=== PATIENT | female | born 1955 | race African-American/Black ===

== ENCOUNTER 2017-12-18 00:24 | Emergency (ER) | payer MEDICAID ==
[~2017-12-18] VITALS: Ht 165.1 cm; Wt 72.0 kg
[2017-12-18] MEDS ORDERED: IBUPROFEN 600MG TABLET PO ONE (03:00)
[2017-12-18] MEDS ORDERED: ZIPRASIDONE HCL 20MG CAPSULE PO ONE (06:15)
[2017-12-18] MEDS ORDERED: ACETAMINOPHEN 325MG TABLET PO ONE (11:00)
[2017-12-19] MEDS ORDERED: DIPHENHYDRAMINE 50MG/ML VIAL IV ONE (08:15)
[2017-12-19] MEDS ORDERED: HALOPERIDOL LACTATE 5MG/ML VIAL IM ONE (08:15)
[2017-12-19] MEDS: LORAZEPAM 2MG/ML CPJ IM PRN ×2 (08:58→13:04)
[2017-12-19 10:39] LABS: *BARBITURATES SCREEN URINE NEGATIVE (NEGATIVE); *COCAINE SCREEN URINE NEGATIVE (NEGATIVE); CANNABINOID URINE SCREEN PRESUMTIVE POSITIVE (NEGATIVE); METHADONE URINE SCREEN NEGATIVE (NEGATIVE); OPIATES URINE SCREEN PRESUMTIVE POSITIVE (NEGATIVE); PHENCYCLIDINE URINE SCREEN NEGATIVE (NEGATIVE)
[2017-12-19 10:40] LABS: *AMPHETAMINES SCREEN URINE NEGATIVE (NEGATIVE); *BENZODIAZEPINES SCREEN URINE NEGATIVE (NEGATIVE)
[2017-12-20] MEDS ORDERED: ONDANSETRON 4MG ODT PO STA (02:07)
[2017-12-20] MEDS ORDERED: IBUPROFEN 600MG TABLET PO STA (02:07)
[2017-12-20] MEDS ORDERED: FAMOTIDINE 20MG TABLET PO ONE (16:15)
[2017-12-20] MEDS ORDERED: ACETAMINOPHEN 325MG TABLET PO ONE (23:30)
[2017-12-21] MEDS ORDERED: MENTHOL/LANOLIN/CALAMINE/ZN OX OINT 71GM TOP ONE ×2 (19:45→20:15)
[2017-12-21] MEDS ORDERED: IBUPROFEN 600MG TABLET PO ONE (19:45)
[2017-12-21] MEDS ORDERED: IBUPROFEN 600MG TABLET PO SCH (20:15)
[2017-12-21] MEDS: LORAZEPAM 2MG/ML CPJ IM PRN ×2 (22:53→23:17)
[2017-12-22] MEDS ORDERED: ONDANSETRON HCL 4MG/2ML INJ IV ONE (00:15)
[2017-12-22] MEDS ORDERED: ONDANSETRON HCL 4MG TABLET PO ONE ×2 (00:30→21:45)
[2017-12-22] MEDS ORDERED: IBUPROFEN 400MG TABLET PO ONE (11:30)
[2017-12-22 14:58] LABS: BASOPHILS % 0.9 % (0.0-2.0); EOSINOPHILS % 1.9 % (0.0-5.0); HEMATOCRIT. 44.8 % (36.0-48.0); HEMOGLOBIN. 14.5 g/dL (12.0-16.0); LYMPHOCYTES % 33.4 % (20.0-50.0); MEAN CORPUSCULAR HEMOGLOBIN 26.1 pg (28.0-32.0); MEAN CORPUSCULAR VOLUME 80.6 fL (81.0-99.0); MEAN PLATELET VOLUME 8.5 fl (7.4-10.4); MONOCYTES % 10.7 % (2.0-8.0); NEUTROPHILS % 53.1 % (40.0-76.0); PLATELET 259 x1000/uL (130-400); RED BLOOD CELL COUNT 5.56 mill/uL (4.2-5.4); RED CELL DISTRIBUTION WIDTH 14.9 % (11.6-14.6)
[2017-12-22 15:03] LABS: CHLORIDE 105 mEq/L (98-107)
[2017-12-22 15:11] LABS: ETHANOL BLOOD < 10 mg/dL
[2017-12-22 15:36] LABS: CLARITY URINE TURBID (CLEAR); COLOR URINE DARK YELLOW (YELLOW); KETONES URINE 2+ (NEGATIVE); LEUKOCYTE ESTERASE URINE NEGATIVE (NEGATIVE); NITRITE URINE NEGATIVE (NEGATIVE); OCCULT BLOOD URINE NEGATIVE (NEGATIVE); PROTEIN URINE TRACE (NEGATIVE); SPECIFIC GRAVITY URINE 1.024 (1.005-1.030)
[2017-12-22 15:49] LABS: *AMPHETAMINES SCREEN URINE NEGATIVE (NEGATIVE); *BARBITURATES SCREEN URINE NEGATIVE (NEGATIVE); *COCAINE SCREEN URINE NEGATIVE (NEGATIVE); METHADONE URINE SCREEN NEGATIVE (NEGATIVE); OPIATES URINE SCREEN PRESUMTIVE POSITIVE (NEGATIVE); PHENCYCLIDINE URINE SCREEN NEGATIVE (NEGATIVE)
[2017-12-22 15:50] LABS: CANNABINOID URINE SCREEN PRESUMTIVE POSITIVE (NEGATIVE)
[2017-12-22 15:57] LABS: *BENZODIAZEPINES SCREEN URINE NEGATIVE (NEGATIVE)
[2017-12-23] MEDS ORDERED: KETOROLAC 60MG/2ML VIAL IM ONE (00:15)
[2017-12-23] MEDS ORDERED: ONDANSETRON 4MG ODT PO ONE ×2 (00:15→21:00)
[2017-12-23] MEDS: ONDANSETRON 4MG ODT PO SCH ×2 (01:48→06:04)
[2017-12-23] MEDS: KETOROLAC 60MG/2ML VIAL IM SCH ×3 (01:59→06:05)
[2017-12-23] MEDS: LORAZEPAM 2MG/ML CPJ IM PRN ×3 (01:59→06:05)
[2017-12-23] MEDS ORDERED: RISPERIDONE 1MG TABLET PO STA (13:19)
[2017-12-23 15:11] LABS: T4 FREE 1.34 ng/dL (0.76-1.46)
[2017-12-23] MEDS ORDERED: MAGNESIUM/ALUMINUM HYDROXIDE/SIMETHICONE 30ML UDC PO STA (20:57)
[2017-12-24] MEDS ORDERED: KETOROLAC 30MG/ML VIAL IV ONE (02:45)
[2017-12-24] MEDS ORDERED: KETOROLAC 30MG/ML VIAL IV SCH (02:51)
[2017-12-24] MEDS ORDERED: KETOROLAC 60MG/2ML VIAL IM ONE (03:00)
[2017-12-24 14:55] VITALS: BP 130/78
== END 2017-12-24 15:47 | disposition home or self-care (01) ==
LOC: ER 00:24 → EDBD 00:24 → ER 12-24 15:47
DX: M79.1 Myalgia (principal); R46.2 Strange and inexplicable behavior
CPT/HCPCS: 36415; 70450; 80048; 80305; 80307; 80329; 81003; 84439; 84443; 85025; 96372; 96374; 99285; G0482; J1200; J1630; J1885; J2060; Q0162; 99284

== ENCOUNTER 2017-12-25 20:53 | Emergency (ER) | payer MEDICAID ==
[~2017-12-25] VITALS: Ht 165.1 cm; Wt 146.0 kg
[2017-12-25 23:24] LABS: BASOPHILS % 0.7 % (0.0-2.0); EOSINOPHILS % 2.4 % (0.0-5.0); HEMATOCRIT. 44.7 % (36.0-48.0); HEMOGLOBIN. 14.5 g/dL (12.0-16.0); LYMPHOCYTES % 35.3 % (20.0-50.0); MEAN CORPUSCULAR HEMOGLOBIN 25.9 pg (28.0-32.0); MONOCYTES % 10.1 % (2.0-8.0); NEUTROPHILS % 51.5 % (40.0-76.0); PLATELET 274 x1000/uL (130-400); RED BLOOD CELL COUNT 5.59 mill/uL (4.2-5.4); RED CELL DISTRIBUTION WIDTH 14.2 % (11.6-14.6)
[2017-12-25 23:28] LABS: CHLORIDE 104 mEq/L (98-107)
[2017-12-25 23:35] LABS: ETHANOL BLOOD < 10 mg/dL
[2017-12-26 03:41] VITALS: BP 127/76
== END 2017-12-26 06:17 | disposition left against medical advice (07) ==
LOC: ER 21:23
DX: F91.9 Conduct disorder, unspecified (principal); E11.9 Type 2 diabetes mellitus without complications; I10 Essential (primary) hypertension
CPT/HCPCS: 36415; 80053; 80307; 80329; 85025; 99284; G0482

== ENCOUNTER 2018-08-01 12:23 | Inpatient (IN) | payer MEDICAID ==
[~2018-08-01] VITALS: Ht 157.5 cm; Wt 137.0 kg
[2018-08-01 16:03] LABS: CLARITY URINE CLEAR (CLEAR); COLOR URINE YELLOW (YELLOW); KETONES URINE NEGATIVE (NEGATIVE); LEUKOCYTE ESTERASE URINE NEGATIVE (NEGATIVE); NITRITE URINE NEGATIVE (NEGATIVE); OCCULT BLOOD URINE NEGATIVE (NEGATIVE); PH URINE 5.5 (4.5-8.0); PROTEIN URINE NEGATIVE (NEGATIVE); SPECIFIC GRAVITY URINE 1.019 (1.005-1.030); UROBILINOGEN URINE 0.2 E.U./dL (0.2-1.0)
[2018-08-01] MEDS ORDERED: ONDANSETRON HCL 4MG/2ML INJ IV STA (17:26)
[2018-08-01] MEDS ORDERED: SODIUM CHLORIDE 0.9% 1,000 ML IV ONE (17:26)
[2018-08-01] MEDS ORDERED: MORPHINE SULFATE 4 MG/ML CPJ (NOT FOR IM USE) IV STA (17:26)
[2018-08-01] MEDS ORDERED: KETOROLAC 30MG/ML VIAL IV STA (17:26)
[2018-08-01 18:34] LABS: BASOPHILS % 0.7 % (0.0-2.0); EOSINOPHILS % 3.3 % (0.0-5.0); HEMATOCRIT. 43.6 % (36.0-48.0); HEMOGLOBIN. 14.2 g/dL (12.0-16.0); LYMPHOCYTES % 26.2 % (20.0-50.0); MEAN CORPUSCULAR HEMOGLOBIN 26.9 pg (28.0-32.0); MEAN CORPUSCULAR VOLUME 82.6 fL (81.0-99.0); MEAN PLATELET VOLUME 8.1 fl (7.4-10.4); MONOCYTES % 5.8 % (2.0-8.0); PLATELET 241 x1000/uL (130-400); RED BLOOD CELL COUNT 5.28 mill/uL (4.2-5.4); RED CELL DISTRIBUTION WIDTH 13.5 % (11.6-14.6)
[2018-08-01 18:37] LABS: CHLORIDE 109 mEq/L (98-107); PARTIAL THROMBOPLASTIN TIME 30.4 sec (23.4-31.0); PROTHROMBIN TIME 10.1 sec (9.1-11.1)
[2018-08-01] MEDS ORDERED: MORPHINE SULFATE 4 MG/ML CPJ (NOT FOR IM USE) IV ONE (20:30)
[2018-08-01] MEDS ORDERED: ONDANSETRON HCL 4MG/2ML INJ IV ONE (20:30)
[2018-08-01] MEDS ORDERED: FLUCONAZOLE 100MG TABLET PO ONE (21:15)
[2018-08-01] MEDS ORDERED: ONDANSETRON HCL 4MG/2ML INJ IV PRN (21:45)
[2018-08-01] MEDS ORDERED: GUAIFENESIN 200MG/10ML SUGAR FREE UDC PO PRN (21:45)
[2018-08-01] MEDS ORDERED: HYDRALAZINE 20MG/ML VIAL IV PRN (21:45)
[2018-08-01] MEDS ORDERED: LORAZEPAM 2MG/ML CPJ IV PRN (21:45)
[2018-08-01] MEDS ORDERED: ACETAMINOPHEN 325MG TABLET PO PRN (21:45)
[2018-08-01] MEDS ORDERED: IPRATROPIUM/ALBUTEROL 0.5-3(2.5)MG/3ML NEB INH PRN (21:45)
[2018-08-01] MEDS ORDERED: HYDROCODONE/ACETAMINOPHEN 10/325MG TABLET PO PRN (21:45)
[2018-08-01] MEDS ORDERED: DEXTROSE 50% WATER 50ML SYRINGE IV PRN (21:45)
[2018-08-01] MEDS ORDERED: DIPHENHYDRAMINE 50MG/ML VIAL IV PRN (21:45)
[2018-08-01] MEDS ORDERED: MAGNESIUM/ALUMINUM HYDROXIDE/SIMETHICONE 30ML UDC PO PRN (21:45)
[2018-08-01] MEDS ORDERED: DOCUSATE SODIUM 100MG CAPSULE PO PRN (21:45)
[2018-08-01] MEDS ORDERED: CLONIDINE 0.1MG TABLET PO PRN (21:45)
[2018-08-01 23:00] VITALS: BP 106/57
[2018-08-01] MEDS ORDERED: SODIUM CHLORIDE 0.9% INJ 3ML FLUSH IVF SCH (23:00)
[2018-08-01] MEDS ORDERED: DEXT 5%/0.45% NACL 1000ML 1,000 ML IV SCH (23:03)
[2018-08-02] MEDS ORDERED: HYDRALAZINE 10 MG in DEXTROSE 5% WATER 50 ML IV PRN ×2
[2018-08-02] MEDS ORDERED: HYDRALAZINE 20 MG in DEXTROSE 5% WATER 50 ML IV PRN ×2
[2018-08-02] MEDS: HYDROMORPHONE HCL/PF 2MG/ML CPJ IV PRN ×4 (00:03→20:20)
[2018-08-02] MEDS ORDERED: LYRICA (05:21)
[2018-08-02 07:17] LABS: BASOPHILS % 0.6 % (0.0-2.0); EOSINOPHILS % 5.7 % (0.0-5.0); HEMATOCRIT. 44.6 % (36.0-48.0); HEMOGLOBIN. 14.1 g/dL (12.0-16.0); LYMPHOCYTES % 48.2 % (20.0-50.0); MEAN CORPUSCULAR HEMOGLOBIN 26.7 pg (28.0-32.0); MEAN CORPUSCULAR VOLUME 84.3 fL (81.0-99.0); MEAN PLATELET VOLUME 8.4 fl (7.4-10.4); MONOCYTES % 6.6 % (2.0-8.0); NEUTROPHILS % 38.9 % (40.0-76.0); PLATELET 217 x1000/uL (130-400); RED BLOOD CELL COUNT 5.29 mill/uL (4.2-5.4); RED CELL DISTRIBUTION WIDTH 13.7 % (11.6-14.6)
[2018-08-02 08:00] VITALS: BP 119/52
[2018-08-02 10:09] LABS: CHLORIDE 112 mEq/L (98-107)
[2018-08-02 12:00] VITALS: BP 134/99
[2018-08-02] MEDS: BLOOD SUGAR DIAGNOSTIC STRIP TEST SCH ×3 (12:00→18:37)
[2018-08-02] MEDS: INSULIN LISPRO 100 UNITS/ML SUBCUT SCH ×3 (12:00→18:00)
[2018-08-02 16:00] VITALS: BP 132/70
[2018-08-02] MEDS ORDERED: HYDR-4009 MT (17:30)
[2018-08-02 20:20] VITALS: BP 127/94
== END 2018-08-02 20:55 | disposition home or self-care (01) | DRG 254 ==
LOC: ER 12:23 → 6EST 20:59 → ENRESERV 21:44
PROVIDERS: ADMIT Internal Medicine; ATTEND Internal Medicine
DX: K43.2 Incisional hernia without obstruction or gangrene (principal); E66.01 Morbid (severe) obesity due to excess calories; E11.9 Type 2 diabetes mellitus without complications; I10 Essential (primary) hypertension
CPT/HCPCS: 36415; 71045; 74176; 82962; 83880; 84484; 93005; 96361; 96374; 96375; 96376; 99285; J1170; J1200; J1885; J2270; J2405; J7030